=== PATIENT | male | born 1995 | race Caucasian/White ===

== ENCOUNTER 2017-03-28 19:24 | Emergency (ER) | payer SELFPAY ==
[~2017-03-28] VITALS: Ht 189.2 cm; Wt 97.3 kg
[2017-03-28 19:32] VITALS: TEMP 37; Ht 189.2 cm; Wt 97.3 kg
--- NOTE | 2017-03-28 19:53 | EMERGENCY ROOM VISIT NOTE ---
History Report prepared by Micky: Veena Marinelli Under the Supervision of: Dr. Best Kaur M.D. First contact with patient: 19:38 Chief Complaint: CONFUSION Stated Complaint: MEMORY LOSS, POSSIBLY DRUGGED History of Present Illness The patient is a 21 year old white male with a past medical history of bronchitis, pneumonia who presents to the ED with a cc of an episode of memory loss which occurred last night after drinking alcohol. Positive confusion, difficulty finding way home, alcohol use, fall. Negative injury. He admits to chewing and smoking tobacco. Source of History: patient Onset: last night Position: other (global) Quality: other (memory loss) Timing: other (episodic) Note: Pt reports confusion, falls. Pt denies injury. Review of Systems See HPI for pertinent positives and negatives. A total of ten systems were reviewed and were otherwise negative. Past Medical & Surgical Medical Problems: (1) Bronchitis (2) Pneumonia Family History No pertinent family history stated. Social History Smoking Status: Current Some Day Smoker Alcohol Use: occasionally Occupation Status: employed, student Allergies Coded Allergies: Amoxicillin (Verified Allergy, Unknown, unk, 03/28/17) Clavulanic Acid (Verified Allergy, Unknown, unk, 03/28/17) Physical Exam Vital Signs Date Time Temp Pulse Resp B/P (MAP) Pulse Ox O2 Delivery O2 Flow Rate FiO2 03/28/17 20:02 63 18 134/98 97 03/28/17 19:32 37.0 93 18 155/97 99 Room Air Physical Exam GENERAL: Awake, alert, well-appearing, NAD HENT: Normocephalic, atraumatic. EYES: Normal conjunctiva. Sclera non-icteric. NECK: Supple. No nuchal rigidity. FROM. RESPIRATORY: CTAB, no rhonchi, wheezing, crackles CARDIAC: RRR, no MRG ABDOMEN: Soft, NTND, BS+ MSK: No chest wall TTP, no LE edema, no obvious signs of trauma, no pain to the chest, back, abdomen, head, neck, or extremities. NEURO: GCS 15, CN 2-12 intact, moves all 4s on command SKIN: No rash or jaundice noted. Medical Decision & Procedures ED Course 1939: The patient was evaluated in room A11B. A complete history and physical exam was performed. I discussed results and discharge instructions: he verbalized understanding and agreement. The patient is ready for discharge. Medical Decision The patient is a 21 year old white male with a past medical history of bronchitis, pneumonia who presents to the ED with a cc of an episode of memory loss which occurred last night after drinking alcohol. Differential diagnosis: intoxication, overdose, substance abuse, electrolyte abnormality. Patient was seen and evaluated at the bedside. Patient did state that he has a brief window after drinking last evening at which point he doesn't entirely remember taken additional time to get home. Patient does not have any acute symptomatically complaints please concerned that maybe something was placed since of the he had drank. Patient denies any drug abuse. Patient states he does use tobacco occasionally. Patient has a normal neurologic exam and no focal signs of trauma. I splinted the patient that we do workup however we may not find anything. Patient elected not to complete any further workup at this time. Patient was given strict follow-up, discharge, and return precautions and was safely discharged home. Medication Reconcilliation Current Medication List: was personally reviewed by me Blood Pressure Screening Patient's blood pressure: Elevated blood pressure Blood pressure disposition: Referred to PCP Impression Primary Impression: Confusion Additional Impression: Encounter for smoking cessation counseling Scribe Attestation The scribe's documentation has been prepared under my direction and personally reviewed by me in its entirety. I confirm that the note above accurately reflects all work, treatment, procedures, and medical decision making performed by me. Departure Information Dispostion Home / Self-Care Referrals [facility] Patient Instructions Alcohol Abuse - [facility], ED Smoking Cessation, My [facility] Additional Instructions Please return to the emergency department if you have worsening or recurrent symptoms not amenable to at-home treatment. Please call for a follow-up appointment with her primary care physician. Please take your medications as prescribed. If you have other concerns and/or complaints please feel free to also call your primary care physician's office or return the ED for further evaluation, management, and treatment. Consider smoking and/or alcohol cessation. Stopping both will improve your overall short term and fpc health. You have been examined and treated today on an emergency basis only. This is not a substitute for, or an effort to provide, complete comprehensive medical care. It is impossible to recognize and treat all injuries or illnesses in a single emergency department visit. It is therefore important that you follow up closely with [facility]. Call as soon as possible for an appointment. Thank you for your time and consideration. I look forward to speaking with you again soon. Please don't hesitate to call us if you have any questions. Problem Qualifiers
[2017-03-28 20:02] VITALS: BP 134/98; PULSE 63; O2SAT 97
== END 2017-03-28 20:02 | disposition home or self-care (01) ==
LOC: C.EDB 19:26 → C.EDA 20:02
DX: R41.0 Disorientation, unspecified (principal); Z71.6 Tobacco abuse counseling; F17.200 Nicotine dependence, unspecified, uncomplicated; F17.220 Nicotine dependence, chewing tobacco, uncomplicated